=== PATIENT | male | born 1975 | race Caucasian/White ===

== ENCOUNTER 2017-05-19 19:42 | Emergency (ER) | payer OTHER ==
--- NOTE | 2017-05-19 20:33 | RAD ---
INDICATION: Trauma possible dislocation. TECHNIQUE: 3 views of the left shoulder were obtained. FINDINGS: There is anterior dislocation of the humerus. No fracture is seen. IMPRESSION: ANTERIOR DISLOCATION OF THE HUMERUS.
[2017-05-19] MEDS ORDERED: Morphine INJ* 4 MG/ML 1 ML CARPUJECT IV ONE (22:41)
[2017-05-19] MEDS ORDERED: Ketorolac INJ* 30 MG/ML 1 ML VIAL IV PUSH ONE (23:10)
--- NOTE | 2017-05-20 00:04 | ED ---
Upper Extremity Pain - HPI Summary HPI Summary: 41-year-old male presents with left shoulder pain today. He states he was skiing and fell. He states he feels that his shoulder dislocated. He denies any numbness or tingling. He denies any history of dislocation. Denies any other injury. Isn't taking anything for his pain. 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 - History of Current Complaint Chief Complaint: EDExtremityUpper Stated Complaint: LT SHOULDER INJURY Time Seen by Provider: 05/19/17 22:40 - Allergies/Home Medications Allergies/Adverse Reactions: Allergies Allergy/AdvReac Type Severity Reaction Status Date / Time No Known Allergies Allergy Verified 05/19/17 19:51 PMH/Surg Hx/FS Hx/Imm Hx Endocrine/Hematology History: Denies: Hx Anticoagulant Therapy Cardiovascular History: Denies: Hx Myocardial Infarction Infectious Disease History: No Infectious Disease History: Denies: Traveled Outside the [place] in Last 30 Days - Family History Known Family History: Positive: Hypertension - Social History Alcohol Use: Occasionally Substance Use Type: Reports: None Review of Systems Negative: Fever Negative: Chest Pain Negative: Shortness Of Breath Positive: Myalgia - left shoulder pain All Other Systems Reviewed And Are Negative: Yes Physical Exam Triage Information Reviewed: Yes Vital Signs On Initial Exam: Initial Vitals Temp Pulse Resp BP Pulse Ox 98.5 F 55 18 146/89 99 05/19/17 19:47 05/19/17 19:47 05/19/17 19:47 05/19/17 19:47 05/19/17 19:47 Vital Signs Reviewed: Yes Appearance: Positive: Well-Appearing Skin: Positive: Warm, Dry Head/Face: Positive: Normal Head/Face Inspection, Other - No richards sign step- off or raccoon eyes Eyes: Positive: Normal, Conjunctiva Clear Neck: Positive: Other: - Nontender neck full range of motion Respiratory/Lung Sounds: Positive: Clear to Auscultation, Breath Sounds Present Cardiovascular: Positive: Normal, RRR Musculoskeletal: Positive: Limited @ - Left shoulder, Other - Deformities the left shoulder, good pulses, good tassel maker strength, capillary refill less than 2 seconds, sensation grossly intact Neurological: Positive: Normal Psychiatric: Positive: Normal Procedures - Joint Reduction Joint Reduction Site: shoulder (L) Conscious Sedation: No Reduction Attempts: 1 - external rotation reduced shoulder Pre-Procedure NV Exam: Yes Post Joint Reduction Film: joint reduced Diagnostics - Vital Signs Vital Signs Temp Pulse Resp BP Pulse Ox 05/19/17 23:12 18 05/19/17 19:47 98.5 F 55 18 146/89 99 - Laboratory Lab Statement: Any lab studies that have been ordered have been reviewed, and results considered in the medical decision making process. - Radiology shoulder Xray Interpretation: Positive (See Comments) - anterior shoulder dislocation Radiology Interpretation Completed By: Radiologist shoulder post Xray Interpretation: No Acute Changes - reduced shoulder Radiology Interpretation Completed By: ED Physician Course/Dx - Course Course Of Treatment: 41-year-old male presents with left shoulder pain today. He states he was skiing and fell. He states he feels that his shoulder dislocated. He denies any numbness or tingling. He denies any history of dislocation. Denies any other injury. Isn't taking anything for his pain. 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 On exam his deformity to the shoulder. Neurovascularly intact. X-ray shows anterior dislocation. Attempted external rotation. Successfully reduced shoulder with external rotation. Place patient in sling. Will have follow-up with orthopedic patient understands and agrees appointment - Diagnoses Differential Diagnosis/HQI/PQRI: Positive: Strain, Sprain, Other - dislocation Laboratory Provider Diagnoses: Dislocation of left shoulder joint Discharge - Discharge Plan Condition: Good Disposition: HOME Patient Education Materials: Shoulder Dislocation (ED) Referrals: No Primary Care Phys,NOPCP [Primary Care Provider] - Esther Pryor MD [Medical Doctor] - Additional Instructions: Keep in sling Take Tylenol and ibuprofen every 6 hours as needed for pain Ice/heat Follow up with ortho Return to ED if develop any new or worsening symptoms
[2017-05-20 01:39] VITALS: BP 144/82
--- NOTE | 2017-05-20 08:00 | RAD ---
HISTORY: Post reduction COMPARISONS: May 19, 2017 VIEWS: 3, frontal internal rotation, outlet, and superior angles frontal views of the left shoulder FINDINGS: BONE DENSITY: Normal. BONES: There is a defect of the posterior humeral head suggestive of a Hill-Sachs fracture. There is no appreciable osseous Bankart lesion. JOINTS: There is no arthropathy. ALIGNMENT: There is been interval reduction of the humeral head dislocation. SOFT TISSUES: Unremarkable. OTHER FINDINGS: None. IMPRESSION: 1. INTERVAL REDUCTION OF HUMERAL HEAD DISLOCATION. 2. HILL-SACHS FRACTURE, WITHOUT OBVIOUS OSSEOUS BANKART LESION
== END 2017-05-20 01:39 | disposition home or self-care (01) ==
LOC: ED 19:42
DX: S43.015A Anterior dislocation of left humerus, initial encounter (principal); V00.321A Fall from snow-skis, initial encounter; Y93.23 Activity, snow (alpine) (downhill) skiing, snowboarding, sledding, tobogganing and snow tubing; Y92.9 Unspecified place or not applicable
CPT/HCPCS: 23650; 96374; 96375; 99283; J1885; J2270